=== PATIENT | male | born 1990 | race Caucasian/White ===

== ENCOUNTER 2019-06-10 19:43 | Emergency (ER) | payer SELFPAY ==
[2019-06-10] MEDS ORDERED: Acetaminophen 500 MG TAB ONE (20:21)
--- NOTE | 2019-06-10 22:16 | RAD ---
TWO VIEWS CHEST: Date: 06-10-2019 Provided Clinical History: Fever. FINDINGS: Cardiac and mediastinal silhouette is within normal limits. No focal consolidation, pleural fluid, or pneumothorax apparent. IMPRESSION: No evidence for an acute cardiopulmonary process. POS: [facility]
== END 2019-06-10 21:45 | disposition home or self-care (01) ==
LOC: MADERS 19:43
DX: J02.9 Acute pharyngitis, unspecified (principal); R50.9 Fever, unspecified; R05 Cough
CPT/HCPCS: 71046; 87081; 87430; 87804

== ENCOUNTER 2019-06-11 11:05 | Emergency (ER) | payer SELFPAY | END 2019-06-11 11:38 | disposition home or self-care (01) | LOC: MADERS 11:05 | DX: K04.7 Periapical abscess without sinus (principal); K02.9 Dental caries, unspecified | CPT/HCPCS: 99283 ==

== ENCOUNTER 2021-10-05 00:09 | Emergency (ER) | payer OTHER, SELFPAY ==
[2021-10-05] MEDS ORDERED: Clindamycin 150 MG CAP ONE (00:30)
== END 2021-10-05 00:34 | disposition home or self-care (01) ==
LOC: MADERS 00:09
DX: K04.7 Periapical abscess without sinus (principal)
CPT/HCPCS: 99282